=== PATIENT | male | born 1990 | race Caucasian/White ===

== ENCOUNTER 2016-09-07 10:47 | Emergency (ER) | payer MEDICAID, OTHER ==
[2016-09-07 11:01] VITALS: BP 131/77
--- NOTE | 2016-09-07 11:16 | UC ---
[facility] H[facility] - HPI Summary HPI Summary: Has dental pain that started two days ago. States that it is his lower left tooth. Complains of 4/10 currently. Has been taking Tylenol with some improvement but states that it does not last long. - History of Current Complaint Chief Complaint: UCDentalProblem Stated Complaint: DENTAL COMPLAINT Time Seen by Provider: 09/07/16 11:02 Hx Obtained From: Patient Onset/Duration: Gradual Onset, Lasting Days Severity: Moderate Pain Scale Used: 0-10 Numeric - currently 4/10 Aggravating: Nothing Alleviating: OTC Meds - Tylenol - Allergies/Home Medications Allergies/Adverse Reactions: Allergies Allergy/AdvReac Type Severity Reaction Status Date / Time Penicillins [PCN] Allergy Rash And Verified 09/07/16 11:01 Itching Sulfa Antibiotics Allergy Rash And Verified 09/07/16 11:01 Itching Home Medications: Home Medications buPROPion SR TAB* [Wellbutrin SR TAB*] 150 mg PO BID 09/07/16 [History Confirmed 09/07/16] PMH/Surg Hx/FS Hx/Imm Hx Previously Healthy: Yes Endocrine History Of: Denies: Diabetes, Thyroid Disease Cardiovascular History Of: Denies: Cardiac Disorders, Hypertension Respiratory History Of: Denies: COPD, Asthma GI/ History Of: Denies: Ulcer Psychological History Of: Reports: Depression - Surgical History Surgical History: Yes Surgery Procedure, Year, and Place: hernia repair, hydroceleectomy - Social History Alcohol Use: Daily Alcohol Amount: 3drinks daily Substance Use Type: Marijuana Smoking Status (MU): Light Every Day Tobacco Smoker Type: Cigarettes Household Exposure Type: Cigarettes Review of Systems Constitutional: Negative Skin: Negative Eyes: Negative ENT: Dental Pain, Nasal Discharge Respiratory: Negative Cardiovascular: Negative Gastrointestinal: Negative Genitourinary: Negative Motor: Negative Neurovascular: Negative Musculoskeletal: Negative Neurological: Negative Psychological: Negative All Other Systems Reviewed And Are Negative: Yes Physical Exam Triage Information Reviewed: Yes Appearance: Well-Appearing, No Pain Distress, Well-Nourished Vital Signs: Initial Vital Signs Temp 98.0 F 09/07/16 10:58 Pulse 85 09/07/16 10:58 Resp 14 09/07/16 10:58 BP 131/77 09/07/16 10:58 Pulse Ox 100 09/07/16 10:58 Vital Signs Reviewed: Yes Eye Exam: Normal Eyes: Positive: Conjunctiva Clear ENT Exam: Normal ENT: Positive: Normal ENT inspection, Hearing grossly normal, Pharynx normal, TMs normal. Negative: Nasal congestion, Nasal drainage, Tonsillar swelling, Tonsillar exudate Dental Exam: Other Dental: Positive: Percussion Tenderness @ - L lower rear teeth, Other: - Swelling on left side of face. Pain with palpation. Hole in gum tissue with swelling and visible tooth underneath at tooth #17. Neck exam: Normal Neck: Positive: Supple, Nontender, No Lymphadenopathy Respiratory Exam: Normal Respiratory: Positive: Chest non-tender, Lungs clear, Normal breath sounds, No respiratory distress Cardiovascular Exam: Normal Cardiovascular: Positive: RRR, No Murmur Musculoskeletal Exam: Normal Musculoskeletal: Positive: Strength Intact, ROM Intact Neurological Exam: Normal Neurological: Positive: Alert, Muscle Tone Normal Psychological Exam: Normal Psychological: Positive: Age Appropriate Behavior Skin Exam: Normal Dental Complaint Course/Dx - Course Course Of Treatment: This is dental pain. Given the swelling, and hole in his gums, he needs to be evaluated by a dentist as soon as possible. We will prescribe an antibiotic for any infection. Pain will be managed with Tylenol or an anti-inflammatory such as Naproxen or Ibuprofen. - Differential Dx/Diagnosis Differential Diagnosis/Dx: Dental Abscess, Dental Caries, Fractured Tooth Provider Diagnoses: Dental Pain Discharge - Discharge Plan Condition: Stable Disposition: HOME Prescriptions: Clindamycin Cap(NF) [Cleocin 300 mg Cap(NF)] 300 mg PO QID #28 cap Print Language: TURKISH Referrals: La Hargrove MD [Primary Care Provider] - Additional Instructions: We will prescribe Clindamycin for possible tooth infection. It is very important that you see a dentist as soon as possible. If you are looking for a dentist, please see our list of dental care referrals included in your discharge instructions. For pain management, you may continue taking Tylenol or use an anti-inflammatory such as Naproxen or Ibuprofen.
== END 2016-09-07 11:24 | disposition home or self-care (01) ==
LOC: UCEAST 10:47
DX: K08.89 Other specified disorders of teeth and supporting structures (principal); F12.90 Cannabis use, unspecified, uncomplicated; F17.210 Nicotine dependence, cigarettes, uncomplicated; Z88.0 Allergy status to penicillin; Z88.2 Allergy status to sulfonamides
CPT/HCPCS: 99211; G0463

== ENCOUNTER 2018-04-19 15:04 | Emergency (ER) | payer BC, OTHER ==
[2018-04-19] MEDS ORDERED: LORazepam INJ* 2 MG/ML 1 ML VIAL IV PUSH ONE (15:13)
[2018-04-19] MEDS ORDERED: NS 0.9% 1000 ML* 1,000 ML IV ONE (15:13)
--- NOTE | 2018-04-19 15:22 | ED ---
Palpitations / Dysrhythmia - HPI Summary HPI Summary: Pt is a 27 y/o male brought in by EMS who presents to the ED c/o palpitations since 13:30. He states he suddenly felt light-headed and near-syncopal, and his hands and feet felt tingly. Pt notes that the palpitations are intermittent and they are associated with anxiety. He also c/o congestion and mild heartburn, but denies any runny nose, sore throat, N/V/D, CP, or weight loss/gain. Pt notes that he had a similar episode once; he woke up on the bathroom floor after having 1-2 drinks and smoking marijuana. He did not eat much today, and his girlfriend recently had a cold. Pt has a FHx of cardiac disease. He denies any use of drugs or alcohol today. - History of Current Complaint Chief Complaint: EDDysrhythmPalp Time Seen by Provider: 04/19/18 15:08 Hx Obtained From: Patient Onset/Duration: Sudden Onset - 13:30, Resolved Timing: Intermittent Episodes Lasting: Severity Currently: None Character: Fast Aggravating: Nothing Associated Signs & Symptoms: Lightheadedness, Syncope - Near-syncope Related History: Similar Episode/Dx as - woke up on floor after drinking and smoking marijuana - Allergy/Home Medications Allergies/Adverse Reactions: Allergies Allergy/AdvReac Type Severity Reaction Status Date / Time MS Penicillins [PCN] Allergy Rash And Verified 04/19/18 15:10 Itching MS Sulfa Antibiotics Allergy Rash And Verified 04/19/18 15:10 [Sulfa Antibiotics] Itching Home Medications: Home Medications NK [No Home Medications Reported] 04/19/18 [History Confirmed 04/19/18] PMH/Surg Hx/FS Hx/Imm Hx Endocrine/Hematology History: Denies: Hx Diabetes, Hx Thyroid Disease Cardiovascular History: Denies: Hx Hypertension Respiratory History: Denies: Hx Asthma, Hx Chronic Obstructive Pulmonary Disease (COPD) GI History: Denies: Hx Ulcer Psychiatric History: Reports: Hx Depression - Surgical History Surgery Procedure, Year, and Place: hernia repair, hydroceleectomy Infectious Disease History: No Infectious Disease History: Denies: Hx Clostridium Difficile, Hx Hepatitis, Hx Human Immunodeficiency Virus (HIV), Hx of Known/Suspected MRSA, Hx Shingles, Hx Tuberculosis, Hx Known/ Suspected VRE, Hx Known/Suspected VRSA, History Other Infectious Disease, Traveled Outside the [place] in Last 30 Days - Family History Known Family History: Positive: Cardiac Disease - [place] - Social History Alcohol Use: Daily Alcohol Amount: 3drinks daily Hx Substance Use: No Substance Use Type: Reports: None Hx Tobacco Use: Yes Smoking Status (MU): Light Every Day Tobacco Smoker Type: Cigarettes Review of Systems Negative: Other - Weight loss/gain Positive: Other - Congestion. Negative: Sore Throat, Nasal Discharge Positive: Palpitations - Fast. Negative: Chest Pain Positive: Other - Mild heartburn. Negative: Vomiting, Diarrhea, Nausea Neurological: Other - Light-headed Positive: Paresthesia - Hands/feet, Syncope - Near-syncope Positive: Anxious All Other Systems Reviewed And Are Negative: Yes Physical Exam - Summary Physical Exam Summary: Appearance: Well appearing, no pain distress Skin: warm, dry, reflects adequate perfusion Head/face: normal Eyes: EOMI, ROBLES ENT: mucous membranes moist Neck: supple, non-tender Respiratory: CTA, breath sounds present Cardiovascular: RRR, pulses symmetrical Abdomen: non-tender, soft Bowel Sounds: present Musculoskeletal: normal, strength/ROM intact Neuro: normal, sensory motor intact, A&Ox3 Triage Information Reviewed: Yes Vital Signs On Initial Exam: Initial Vitals Temp Pulse Resp BP Pulse Ox 98.7 F 76 16 126/84 100 04/19/18 15:05 04/19/18 15:05 04/19/18 15:05 04/19/18 15:05 04/19/18 15:05 Vital Signs Reviewed: Yes Diagnostics - Vital Signs Vital Signs Temp Pulse Resp BP Pulse Ox 04/19/18 15:05 98.7 F 76 16 126/84 100 - Laboratory Result Diagrams: 04/19/18 15:51 04/19/18 15:51 Lab Statement: Any lab studies that have been ordered have been reviewed, and results considered in the medical decision making process. - EKG 15:13 Cardiac Rate: NL - 76 bpm EKG Rhythm: Sinus Rhythm ST Segment: Normal Summary of EKG Findings: Normal [place], Normal Interval Course/Dx - Course Course Of Treatment: Patient presents with anxious feeling, tingling in upper and lower extremities and feeling of heart racing. His EKG here and monitor shows normal sinus rhythm in the 70s. He has no palpitations or ectopy on monitor. He is feeling better after hydration and some Ativan. He is discharged in good condition to follow up with his primary care physician. - Diagnoses Differential Diagnosis/HQI/PQRI: Positive: Hypokalemia, Hyperventilation, Panic Disorder, Paroxymal SVT, Other - Ectopy Provider Diagnoses: Panic attack Discharge - Sign-Out/Discharge Documenting (check all that apply): Patient Departure - Discharge - Discharge Plan Condition: Improved Disposition: HOME Prescriptions: hydrOXYzine pamoate [Hydroxyzine Pamoate] 50 mg PO TID PRN #20 capsule PRN Reason: anxiousness Patient Education Materials: Heart Palpitations (ED), Panic Attack (ED) Referrals: La Hargrove MD [Primary Care Provider] - Additional Instructions: Stay well-hydrated. If you feels lightheaded, weak or dizzy sit or lay down. Do not drive until well. Call your doctor first thing in the morning to schedule prompt follow-up. Return if worse, passing out, irregular heartbeat or other concerns as discussed. - Billing Disposition and Condition Condition: IMPROVED Disposition: Home - Attestation Statements Document Initiated by Scribe: Yes Documenting Scribe: Kalee Giles Provider For Whom Joseibe is Documenting (Include Credential): Navin Samuels MD Scribe Attestation: IKalee, scribed for Navin Samuels MD on 04/19/18 at 2141. Scribe Documentation Reviewed: Yes Provider Attestation: The documentation as recorded by the scribeKalee accurately reflects the service I personally performed and the decisions made by me, Navin Samuels MD
[2018-04-19 15:58] LABS: ABS Basophils 0.1 10^3/ul (0-0.2); ABS Eosinophils 0.2 10^3/ul (0-0.6); ABS Lymphocytes 1.4 10^3/ul (1.0-4.8); ABS Monocytes 0.5 10^3/ul (0-0.8); ABS Neutrophils 4.7 10^3/ul (1.5-7.7); ABS Nucleated RBC 0 10^3/ul; Eosinophil % 3.6 % (0-6); Hematocrit 42 % (42-52); Hemoglobin 14.8 g/dl (14.0-18.0); Lymphocyte % 20.6 % (25-47); Mean Corpuscular HGB Conc 35 g/dl (31-36); Mean Corpuscular Hemoglobin 33 pg (27-31); Mean Corpuscular Volume 94 fL (80-94); Mean Platelet Volume 7.2 fL (7.4-10.4); Nucleated Red Blood Cells % 0; Platelet Count 284 10^3/ul (150-450); Red Blood Count 4.47 10^6/ul (4.00-5.40); Red Cell Distribution Width 12 % (10.5-15); White Blood Count 6.8 10^3/ul (3.5-10.8)
[2018-04-19 16:55] VITALS: BP 117/66
== END 2018-04-19 16:54 | disposition home or self-care (01) ==
LOC: ED 15:04
DX: F41.0 Panic disorder [episodic paroxysmal anxiety] (principal); R42 Dizziness and giddiness; R55 Syncope and collapse; Z88.0 Allergy status to penicillin; F17.210 Nicotine dependence, cigarettes, uncomplicated; R00.2 Palpitations
CPT/HCPCS: 36415; 80048; 85025; 93005; 96361; 96374; 99283; J2060